=== PATIENT | male | born 1940 | race Caucasian/White ===

== ENCOUNTER 2022-04-18 16:16 | Outpatient (REF) | payer MEDICARE, BC, SELFPAY ==
--- NOTE | 2022-04-18 15:45 | SKI_PTH ---
PATIENT: Cesar Brunner LOC: [facility] U#:[id number] AGE/SX: 81/M ROOM: RE04/18/[address]: Boris Patel MD : [id number] BED: DIS: 04/18/2022 SPEC #: [id number] RECD: 04/18/22 18:21 STATUS: LILA REQ #: [id number] PITA: 04/18/22 15:[address]: Boris Patel DEPT: Surgical Specimen RECD BY: Jennifer Craig ENTERED: 04/18/22 18:22 SP TYPE: SKI OTHR DR: Alfredo Delgadillo Tissues: 1 - SKIN BIOPSY(SHAVE/PUNCH) Procedures: SKIN LEVEL 4 Comments: [id number]
== END 2022-04-18 16:17 | disposition home or self-care (01) ==
LOC: LBN 16:16
PROVIDERS: PCP Family Medicine; Visit Provider Otolaryngology
DX: L82.1 Other seborrheic keratosis (principal)
CPT/HCPCS: 88305